=== PATIENT | female | born 1965 | race Caucasian/White ===

== ENCOUNTER 2018-06-04 10:12 | Emergency (ER) | payer MEDICAID ==
[~2018-06-04] VITALS: Ht 157.5 cm; Wt 61.8 kg
[2018-06-04 10:27] VITALS: BP 112/66
== END 2018-06-04 11:27 | disposition left against medical advice (07) ==
LOC: ED 11:23
DX: M79.675 Pain in left toe(s) (principal); Z53.21 Procedure and treatment not carried out due to patient leaving prior to being seen by health care provider

== ENCOUNTER 2018-06-07 14:06 | Emergency (ER) | payer MEDICAID ==
[~2018-06-07] VITALS: Ht 157.5 cm; Wt 60.0 kg
[2018-06-07 14:14] VITALS: BP 128/80
== END 2018-06-07 15:13 | disposition home or self-care (01) ==
LOC: ED 15:10
DX: S91.212A Laceration without foreign body of left great toe with damage to nail, initial encounter (principal); F17.200 Nicotine dependence, unspecified, uncomplicated; L03.032 Cellulitis of left toe; W20.8XXA Other cause of strike by thrown, projected or falling object, initial encounter; Y93.89 Activity, other specified; Y92.098 Other place in other non-institutional residence as the place of occurrence of the external cause; Y99.8 Other external cause status
CPT/HCPCS: 99284

== ENCOUNTER 2019-07-22 17:50 | Emergency (ER) | payer MEDICAID ==
[~2019-07-22] VITALS: Ht 157.5 cm; Wt 56.9 kg
[2019-07-22 17:52] VITALS: BP 131/81
[2019-07-22] MEDS ORDERED: LIDOCAINE 1%, 10ML INFIL ONE (18:30)
[2019-07-22] MEDS ORDERED: BUPIVACAINE 0.25% INFIL ONE (18:30)
[2019-07-22] MEDS ORDERED: BUPIVACAINE 0.25% ONE (18:33)
[2019-07-22] MEDS ORDERED: LIDOCAINE-MPF 1%, 5ML ONE (18:35)
--- NOTE | 2019-07-22 18:39 | NUR ---
pt states "i am in too much pain" and eloped
== END 2019-07-22 18:41 | disposition left against medical advice (07) ==
LOC: ED 18:16
DX: K08.89 Other specified disorders of teeth and supporting structures (principal); R51 Headache; Z72.9 Problem related to lifestyle, unspecified; F17.200 Nicotine dependence, unspecified, uncomplicated
CPT/HCPCS: 99283